=== PATIENT | female | born 1965 | race Caucasian/White ===

== ENCOUNTER 2020-08-04 14:49 | Emergency (ER) | payer BC, OTHER ==
[2020-08-04 16:27] LABS: HEMOGLOBIN 12.9 gm/dl (12.3-15.3); RED BLOOD COUNT 4.29 M/UL (4.00-5.10); WHITE BLOOD COUNT 6.9 K/UL (4.5-11.0)
[2020-08-04 17:01] LABS: BUN/CREATININE RATIO 16 (0-10)
== END 2020-08-04 20:10 | disposition home or self-care (01) ==
LOC: ER1 14:49
PROVIDERS: Student in an Organized Health Care Education/Training Program
DX: M79.601 Pain in right arm (principal); M79.604 Pain in right leg; I10 Essential (primary) hypertension; Z90.49 Acquired absence of other specified parts of digestive tract; Z79.899 Other long term (current) drug therapy; Z88.2 Allergy status to sulfonamides; Z88.5 Allergy status to narcotic agent; Z90.710 Acquired absence of both cervix and uterus
CPT/HCPCS: 70450; 70496; 70498; 80053; 82550; 82553; 83874; 84484; 84702; 85025; 85610; 85730; 93005; 99285; Q9967

== ENCOUNTER → 2021-02-22 | Outpatient (CLI) | payer BC | LOC: HEART CORB 13:42 | DX: R00.2 Palpitations (principal) ==

== ENCOUNTER → 2021-03-04 | Outpatient (CLI) | payer BC | LOC: HEART CORB 11:16 | DX: R07.2 Precordial pain (principal) | CPT/HCPCS: 93306 ==

== ENCOUNTER 2021-04-26 19:13 | Emergency (ER) | payer BC | END 2021-04-26 19:30 | disposition left against medical advice (07) | LOC: ER1 19:13 | DX: Z53.21 Procedure and treatment not carried out due to patient leaving prior to being seen by health care provider (principal) ==

== ENCOUNTER 2021-09-06 08:00 | Emergency (ER) | payer BC, OTHER ==
[2021-09-06 08:41] LABS: HEMOGLOBIN 14.5 gm/dl (12.3-15.3); RED BLOOD COUNT 4.71 M/UL (4.00-5.10); WHITE BLOOD COUNT 13.7 K/UL (4.5-11.0)
[2021-09-06 09:10] LABS: BUN/CREATININE RATIO 26 (0-10)
== END 2021-09-06 10:30 | disposition home or self-care (01) ==
LOC: ER1 08:00
DX: R07.89 Other chest pain (principal); R00.2 Palpitations; I10 Essential (primary) hypertension; Z86.16 Personal history of COVID-19; Z88.2 Allergy status to sulfonamides; Z88.5 Allergy status to narcotic agent; Z88.8 Allergy status to other drugs, medicaments and biological substances
CPT/HCPCS: 71045; 80053; 82550; 82553; 84439; 84443; 84484; 85025; 93005; 99285